=== PATIENT | female | born 2000 | race Caucasian/White ===

== ENCOUNTER → 2020-11-04 | Outpatient (CLI) | payer OTHER | LOC: HEART 5 14:30 | DX: R55 Syncope and collapse (principal) ==

== ENCOUNTER → 2020-12-13 | Outpatient (CLI) | payer OTHER | LOC: ECHO 12-11 09:45 | DX: R07.9 Chest pain, unspecified (principal); R53.83 Other fatigue | CPT/HCPCS: ECHO; 93306 ==